=== PATIENT | male | born 1985 | race African-American/Black ===

== ENCOUNTER 2017-09-26 15:31 | Emergency (ER) | payer MEDICAID ==
[~2017-09-26] VITALS: Ht 182.9 cm; Wt 100.0 kg
[2017-09-26] MEDS ORDERED: ZIPRASIDONE 20 MG INJ IM ONE (16:00)
[2017-09-26] MEDS ORDERED: PLEASE ENTER HEIGHT AND WEIGHT MC SCH (16:00)
[2017-09-26 20:20] LABS: BASOPHILS # (AUTO) 0.06 x10^3/uL (0-0.1); BASOPHILS % (AUTO) 1 % (0-1); EOSINOPHILS # (AUTO) 0.16 x10^3/uL (0-0.4); EOSINOPHILS % (AUTO) 1 % (1-7); LYMPHOCYTES # (AUTO) 3.36 x10^3/uL (1-3.4); LYMPHOCYTES % (AUTO) 28 % (22-44); MD NO; MEAN CORPUSCULAR HEMOGLOBIN 30.7 pg (27.5-34.5); MEAN CORPUSCULAR VOLUME 90.5 fL (81-97); MEAN PLATELET VOLUME 7.4 fL (7.4-10.4); MONOCYTES # (AUTO) 0.78 x10^3/uL (0.2-0.8); MONOCYTES % (AUTO) 7 % (2-9); NEUTROPHILS # (AUTO) 7.53 x10^3/uL (1.8-6.8); NEUTROPHILS % (AUTO) 63 % (42-75); PLATELET COUNT 337 x10^3/uL (130-400); RED BLOOD COUNT 5.35 x10^6/uL (4.38-5.82); RED CELL DISTRIBUTION WIDTH 13.6 % (9.4-14.8)
[2017-09-26 20:30] LABS: ALBUMIN 4.5 g/dL (3.4-5.0); ANION GAP 5 mmol/L (5-15); CALCIUM 9.8 mg/dL (8.5-10.1); CHLORIDE 104 mmol/L (98-107); CREATININE 1.34 mg/dL (0.7-1.3); SALICYLATE LEVEL < 1.7 mg/dL (2.8-20.0)
[2017-09-26 20:31] LABS: ACETAMINOPHEN < 2 mcg/mL (10-30)
[2017-09-26] MEDS ORDERED: ZIPRASIDONE 20MG CAPSULE ONE (20:48)
[2017-09-26] MEDS ORDERED: ZIPRASIDONE 20MG CAPSULE PO ONE (21:00)
[2017-09-27] MEDS ORDERED: ONDANSETRON ODT 4 MG PO PRN (04:30)
[2017-09-27] MEDS ORDERED: ZIPRASIDONE 20 MG INJ IM PRN (04:30)
[2017-09-27] MEDS ORDERED: ACETAMINOPHEN 325 MG TABLET PO PRN (04:30)
[2017-09-27] MEDS ORDERED: DOCUSATE 100 MG CAPSULE PO PRN (04:30)
[2017-09-27] MEDS ORDERED: QUETIAPINE 100MG TABLET PO ONE (04:30)
[2017-09-27] MEDS ORDERED: QUETIAPINE 100MG TABLET ONE (04:57)
[2017-09-27] MEDS ORDERED: ARIPIPRAZOLE 15 MG TABLET ONE (07:38)
[2017-09-27] MEDS: ARIPIPRAZOLE 15 MG TABLET PO SCH (07:55)
[2017-09-27] MEDS ORDERED: ZIPRASIDONE 20MG CAPSULE ONE ×2 (13:07→16:34)
[2017-09-27] MEDS: ZIPRASIDONE 20MG CAPSULE PO PRN ×2 (13:11→16:52)
[2017-09-27 14:34] LABS: AMPHETAMINE SCREEN, URINE Positive (Negative); BARBITURATE SCREEN, URINE Negative (Negative); BENZODIAZEPINE SCREEN, URINE Negative (Negative); CANNABINOID SCREEN, URINE Negative (Negative); COCAINE SCREEN, URINE Negative (Negative); METHADONE SCREEN, URINE Negative (Negative); OPIATE SCREEN, URINE Negative (Negative)
[2017-09-28] MEDS ORDERED: ARIPIPRAZOLE 15 MG TABLET ONE (09:49)
[2017-09-28] MEDS: ARIPIPRAZOLE 15 MG TABLET PO SCH (09:54)
[2017-09-28] MEDS ORDERED: ZIPRASIDONE 20 MG INJ IM ONE (09:58)
[2017-09-29] MEDS ORDERED: ZIPRASIDONE 20MG CAPSULE ONE (07:35)
[2017-09-29] MEDS ORDERED: ARIPIPRAZOLE 15 MG TABLET ONE (07:35)
[2017-09-29] MEDS: ZIPRASIDONE 20MG CAPSULE PO PRN (08:40)
[2017-09-29] MEDS: ARIPIPRAZOLE 15 MG TABLET PO SCH (08:40)
[2017-09-29 10:52] VITALS: BP 120/75
== END 2017-09-29 12:14 ==
LOC: ED 16:24 → UNDOADMOB 21:53 → EDIP 21:53 → ED 09-29 12:14
DX: S61.213A Laceration without foreign body of left middle finger without damage to nail, initial encounter (principal); F20.9 Schizophrenia, unspecified; F31.9 Bipolar disorder, unspecified; F15.10 Other stimulant abuse, uncomplicated; F43.10 Post-traumatic stress disorder, unspecified; Y93.89 Activity, other specified; Y92.89 Other specified places as the place of occurrence of the external cause; Y99.8 Other external cause status; X58.XXXA Exposure to other specified factors, initial encounter
CPT/HCPCS: 36415; 80048; 80307; 80329; 82040; 85025; 96372; 99285; J3486; G0480